=== PATIENT | female | born 1960 | race African-American/Black ===

== ENCOUNTER 2018-06-04 20:38 | Emergency (ER) | payer OTHER ==
[2018-06-04 20:50] VITALS: BP 154/88; TEMP 98; BMI 23.5
[2018-06-04] MEDS ORDERED: LIDOCAINE HCL 1% SDV SUBCUT STA (22:34)
--- NOTE | 2018-06-04 22:34 | ED.PDOC ---
General ED Provider: Dr. JAVIER NARANJO Chief Complaint: Laceration Stated Complaint: 58 laceration of r foot posteriorily flap on the heel Time Seen by Physician: 20:50 Mode of Arrival: Walk-In Information Source: Patient Exam Limitations: No limitations Nursing and Triage Documentation Reviewed and Agree: Yes Does patient meet sepsis criteria?: No System Inflammatory Response Syndrome: Not Applicable Sepsis Protocol: For patient's 13 years and over: Temp is 96.8 and below OR 101 and greater Pulse >90 BPM Resp >20/minute Acutely Altered Mental Status Are patient's symptoms suggestive of a new infection, such as: -Pneumonia -Skin, Soft Tissue -Endocarditis -UTI -Bone, Joint Infection -Implantable Device -Acute Abdominal Infection -Wound Infection -Meningitis -Blood Stream Catheter Infection -Unknown Skin Complaint Exam - Skin/Soft Tissue Complaint/Exam Onset/Duration: laceration r foot Symptoms Are: Still present Timing: Constant Initial Severity: Moderate Current Severity: Moderate Character: Reports: Redness, Swelling Aggravating: Reports: Touch Alleviating: Reports: Medications Associated Signs and Symptoms: Reports: Tenderness Related History: Reports: Recent trauma Related Surgical History: Reports: None Recent Exposure to Others w/Similar Symptoms: No Skin Findings: Present: Erythema Review of Systems - Review Of Systems Constitutional: Reports: No symptoms Eyes: Reports: No symptoms Ears, Nose, Mouth, Throat: Reports: No symptoms Respiratory: Reports: No symptoms Cardiac: Reports: No symptoms GI: Reports: No symptoms : Reports: No symptoms Musculoskeletal: Reports: No symptoms, Other Skin: Reports: No symptoms Neurological: Reports: No symptoms Endocrine: Reports: No symptoms Hematologic/Lymphatic: Reports: No symptoms All Other Systems: Reviewed and Negative Past Medical History - Past Medical History Previously Healthy: Yes Endocrine: Reports: None Cardiovascular: Reports: None Respiratory: Reports: None Hematological: Reports: None Gastrointestinal: Reports: None Genitourinary: Reports: None Neuro/Psych: Reports: None Musculoskeletal: Reports: None Cancer: Reports: None Last Menstrual Period: n/a - Surgical History General Surgical History: Reports: None - Family History Family History: Reports: None - Social History Smoking Status: Never smoker Hx Substance Use: No Alcohol Screening: None - Immunizations Tetanus Shot up to Date: Yes (2012) Physical Exam - Physical Exam Appearance: Well-appearing Ill-appearing: None Pain Distress: Mild Eyes: DIONISIO ENT: Ears normal Neck: Supple Respiratory: Airway patent, Breath sounds clear Cardiovascular: RRR, Pulses normal GI/: Soft, Nontender Musculoskeletal: Normal strength Skin: Dry Neurological: Sensation intact Psychiatric: Affect appropriate Procedures - Laceration/Wound Repair No standard instances Wound Description: Flap Wound Length (cm): semicircular flap 9 cm Wound Explored: Clean Wound Irrigated: Yes Wound Prep: Saline, Betadine Anesthesia: Lidocaine Wound Debrided: Minimal Undermining: Minimal Wound Margins: Revised Wound Repaired With: Sutures Suture Size and Type: ethilon 3-0 Number of Sutures: 8 Critical Care Note - Critical Care Note Total Time (mins): 0 Course - Course Orders, Labs, Meds: Orders Category Date Time Status Lidocaine HCl/Pf [Lidocaine HCl 1% Sdv] MEDS 06/04/18 22:43 Discontinued 5 ml .ROUTE .STK-MED ONE Lidocaine HCl/Pf [Lidocaine HCl 1% Sdv] MEDS 06/04/18 23:04 Discontinued 5 ml .ROUTE .STK-MED ONE Lidocaine HCl/Pf [Lidocaine HCl 1% Sdv] MEDS 06/04/18 22:34 Discontinued 5 ml SUBCUT ONCE STA Medications Discontinued Medications Generic Name Dose Route Start Last Admin Trade Name Freq PRN Reason Stop Dose Admin Lidocaine HCl 5 ml 06/04/18 22:34 Lidocaine Hcl 1% Sdv SUBCUT 06/04/18 22:35 ONCE STA Vital Signs: Temp Pulse Resp BP Pulse Ox 06/04/18 20:39 98.0 F 99 H 20 154/88 H 97 Departure - Departure Time of Disposition: 00:08 Disposition: HOME SELF-CARE Discharge Problem: Laceration of foot Instructions: Care For Your Stitches (ED) Condition: Good Pt referred to PMD for follow-up: Yes IPMP verified?: No Additional Instructions: Augmenmtin tab a 875/123 bid po x 10 days Allergies/Adverse Reactions: Allergies No Known Allergies Allergy (Unverified 06/04/18 20:50) Home Medications: Ambulatory Orders 1 [No Reported Medications] 06/04/18 Disposition Discussed With: Patient, Family
[2018-06-04] MEDS ORDERED: LIDOCAINE HCL 1% SDV ONE ×2 (22:43→23:04)
[2018-06-05] MEDS ORDERED: TENIVAC IM ONE (00:07)
== END 2018-06-05 00:40 | disposition home or self-care (01) ==
LOC: ED 20:38
DX: S91.311A Laceration without foreign body, right foot, initial encounter (principal); W45.8XXA Other foreign body or object entering through skin, initial encounter
CPT/HCPCS: 90471; 90714; 99283

== ENCOUNTER 2018-07-16 11:34 | Outpatient (CLI) | END 2018-07-16 11:35 | disposition home or self-care (01) | LOC: RHC-LAB 11:34 | PROVIDERS: ATTEND Nurse Practitioner Family | DX: Z00.00 Encounter for general adult medical examination without abnormal findings (principal); S91.309A Unspecified open wound, unspecified foot, initial encounter | CPT/HCPCS: 36415; 80053; 80061; 84443; 85025; 87070 ==

== ENCOUNTER 2018-07-22 10:52 | Outpatient (CLI) | END 2018-07-22 10:53 | disposition home or self-care (01) | LOC: RAD 10:52 | PROVIDERS: ATTEND Nurse Practitioner Family | DX: Z12.31 Encounter for screening mammogram for malignant neoplasm of breast (principal) ==

== ENCOUNTER 2018-07-24 09:15 | Outpatient (CLI) | END 2018-07-24 09:16 | disposition home or self-care (01) | LOC: WOUND 09:15 | PROVIDERS: ATTEND Nurse Practitioner Family | DX: S91.321A Laceration with foreign body, right foot, initial encounter (principal) ==